=== PATIENT | male | born 1990 | race Two or more races ===

== ENCOUNTER → 2020-04-11 | Emergency (ER) | payer OTHER ==
[~2020-04-11] VITALS: Ht 162.6 cm; Wt 81.6 kg
[~2020-04-11] MED LIST: KETOROLAC TROMETH 60MG/2ML VIAL IM ONE
[2020-04-11 11:40] VITALS: BP 118/70
== END | disposition home or self-care (01) ==
LOC: ER 11:35
DX: S83.92XA Sprain of unspecified site of left knee, initial encounter (principal); V09.9XXA Pedestrian injured in unspecified transport accident, initial encounter; Y93.89 Activity, other specified; Y92.410 Unspecified street and highway as the place of occurrence of the external cause; Y99.8 Other external cause status
CPT/HCPCS: 71045; 73562; 96372; 99284; J1885